=== PATIENT | male | born 1960 | race Asian ===

== ENCOUNTER → 2017-01-26 | Outpatient (CLI) | payer BC ==
[2017-01-26 13:39] LABS: ESTIMATED AVERAGE GLUCOSE 126 mg/dl; HA1C FLAG Normal (Normal)
[2017-01-26 13:50] LABS: ALT/SGPT 85 U/L (12-78); BLOOD UREA NITROGEN 18 mg/dl (7-18); BUN/CREATININE RATIO 15.9 (10-20); CARBON DIOXIDE 25 mmol/L (21-32); CHLORIDE 101 mmol/L (98-107); CHOLESTEROL 268 mg/dl (0-200); GLUCOSE 102 mg/dl (70-99); POTASSIUM 4.2 mmol/L (3.5-5.1); SODIUM 136 mmol/L (136-145); TRIGLYCERIDES 481 mg/dl (0-150); URIC ACID 6.9 mg/dl (2.6-7.2)
[2017-01-26 13:53] LABS: ALB/GLOB RATIO 1.2 (0.9-2); ALKALINE PHOSPHATASE 29 U/L (45-117); AST/SGOT 61 U/L (15-37); CHOLESTEROL/HDL RATIO 7.1; HDL CHOLESTEROL 38 mg/dl
[2017-01-26 14:00] LABS: CALCIUM 9.6 mg/dl (8.5-10.1)
== END | disposition home or self-care (01) ==
LOC: C.LABBC 10:35
PROVIDERS: ATTEND Family Medicine
DX: R73.03 Prediabetes (principal); E78.5 Hyperlipidemia, unspecified; M10.9 Gout, unspecified